=== PATIENT | female | born 1995 | race Caucasian/White ===

== ENCOUNTER 2017-08-25 15:43 | Emergency (ER) | payer MEDICAID ==
[2017-08-25] MEDS ORDERED: diphenhydrAMINE 50 MG/ML SDV IVPUSH ONE (16:29)
[2017-08-25] MEDS ORDERED: Ketorolac 30 MG/ML SDV IVPUSH ONE (16:29)
[2017-08-25] MEDS ORDERED: Sodium Chloride 0.9% 1,000 ML IV SCH (16:30)
[2017-08-25] MEDS ORDERED: Sodium Chloride 0.9% 10 ML Syringe FLUSH PRN (16:39)
[2017-08-25 17:41] VITALS: BP 123/79
--- NOTE | 2017-08-26 16:46 | ER ---
DATE SEEN: 08/25/2017 TIME SEEN: 1805 hours. CHIEF COMPLAINT: Headache. HISTORY OF PRESENT ILLNESS: The patient's headache came on an hour after she was told by her boyfriend about a breakup, at approximately 1023 hours this morning. She cried and since then she has had generalized headache. She describes it as a pressure from her eyes that radiates to both her ears. She denies paresis, weakness, numbness, hyperesthesia, dysesthesia, compromise in her vision, nausea, vomiting, diarrhea, fever, neck stiffness, scotoma, aura, or previous history of migraine headaches. She is not suicidal and does not feel helpless or hopeless or have difficulty with concentration. She is anxious. No history of psychomotor retardation or suicidal ideation or activity. PAST MEDICAL HISTORY: The patient has a past medical history of depression and takes Effexor, [id number] medication. ALLERGIES: Dilaudid. MEDICATIONS: She is using a form of contraception. Not . REVIEW OF SYSTEMS: Otherwise, negative except for noted above. PHYSICAL EXAMINATION: VITAL SIGNS: Blood pressure 129/89, heart rate 92, respirations 14, oxygen saturation 100%, and temperature 36.2 degrees centigrade. CONSTITUTIONAL: Alert, slightly overweight, tearful, sad woman who is in mild distress. Headache is 6 to 8. HEENT: PERRLA intact. Pharynx without abnormality. TMs negative. NECK: Supple. No thyromegaly, masses in neck, or cervical adenopathy. LUNGS: Clear without rales, rhonchi, or wheezes. HEART: S1, S2. No murmur. No irregular rate and rhythm. ABDOMEN: Soft. No guarding. No abdominal discomfort. No CVA percussion tenderness. EXTREMITIES: Without abnormality. NEURO: Exam is negative. Deep tendon reflexes, negative. Cranial nerves 2 through 12 normal and intact. No pronator drift. No dysmetria. No paresis or weakness. Romberg is negative. ASSESSMENT: Headache secondary to stress. No suggestion of migraine. EMERGENCY ROOM COURSE: The patient was treated with IV fluids, 1000 mL normal saline, Reglan 10 IV, Benadryl 50 IV, and Toradol 30 IV. Headache went down to 1/10 after she had received approximately 800 mL of normal saline. The patient was dismissed. PLAN: She will use Tylenol or ibuprofen as needed. Follow up with her doctor as needed, otherwise, in a week. DIAGNOSIS: Tension headache. /[id number] REGI/CHRIS
== END 2017-08-25 17:57 | disposition home or self-care (01) ==
LOC: FB.ED 15:43
DX: F43.9 Reaction to severe stress, unspecified (principal); G44.209 Tension-type headache, unspecified, not intractable; Z88.8 Allergy status to other drugs, medicaments and biological substances; F41.9 Anxiety disorder, unspecified
CPT/HCPCS: 96361; 96374; 96375; 99283; J1200; J1885; J7040; J7050; J7030

== ENCOUNTER 2018-01-26 18:15 | Emergency (ER) | payer MEDICAID ==
[2018-01-26] MEDS ORDERED: EPINEPHrine 1 MG/ML SDV SUBCUT ONE (19:51)
[2018-01-26] MEDS ORDERED: Sodium Chloride 0.9% 1,000 ML IV ONE (19:51)
[2018-01-26] MEDS ORDERED: Pantoprazole 40 MG Vial IVPUSH ONE (21:53)
[2018-01-26] MEDS ORDERED: diphenhydrAMINE 50 MG/ML SDV IVPUSH ONE (21:53)
[2018-01-26] MEDS ORDERED: Hydrocortisone Sodium Succinate 100 MG/2 ML SDV IVPUSH ONE (21:53)
[2018-01-26 23:45] VITALS: BP 153/94
--- NOTE | 2018-01-27 10:42 | ER ---
DATE SEEN: 01/26/2018 TIME SEEN: The patient was seen at 1860 hours. CHIEF COMPLAINT: Shortness of breath and abdominal pain. HISTORY OF PRESENT ILLNESS: About 10 to 15 minutes ago, the patient ate Cajun chicken at the [employer] at 1800 hours. She then started experiencing nausea, her face, neck, and arms were flushed. She became warm and hot and short of breath, and there was fullness in her throat. She had a difficulty swallowing sensation in her throat. She had pain with 9/10 abdominal discomfort. She has had a slight change in talking and slight difficulty breathing. She had mild left-sided parasternal discomfort. This was associated with a slight abdominal bloating,and a "stabbing,\\/ cutting sensation" with the 9/10 abdominal discomfort. She also describes a subxiphoid and substernal chest discomfort that radiates to the sides of her chest and then to the left parasternal area. She denies feeling dizzy. These flushing symptoms, tight throat and abdominal symptoms are similar to what she experienced 2 years ago when she had been give a shot Dilaudid. Except at that time the symptoms differed in that she blacked out from hypotension. Approximately several hours before she went to the restaurant, she had non bloody diarrhea x 2. No history of irritable bowel syndrome. She had a late meal of stuffing last night, and had a slight nausea last night, and otherwise was not sick this morning except for loose stools. 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 On arrival, heart rate is 120 to 126, blood pressure is 148/96, respirations are 20, and oxygen saturation on room air is 100%. No tachypnea. Temperature 36.9 degrees centigrade. The patient was not in extremis. REVIEW OF SYSTEMS: Negative except as noted above. ALLERGIES: Hydromorphone-Dilaudid. CURRENT MEDICATIONS: Venlafaxine for depression 150 mg daily/anxiety. PHYSICAL EXAMINATION: GENERAL: The patient is not flushed presently. She is able to breathe, is able to communicate, and does not have any wheezing, shortness of breath, or diaphoresis. HEENT: PERRLA intact. Pharynx without abnormality. Mucosa is semi-moist. Hearing is good, intact. NECK: No stridor. No thyromegaly or masses in the neck. No cervical adenopathy. No tracheal tug or tracheal deviation. LUNGS: Clear without rales, rhonchi, or wheezes. No intercostal retraction. No suprasternal retraction. No subxiphoid retraction. HEART: S1 and S2. Sinus tachycardia. ABDOMEN: Soft. No guarding. No abdominal discomfort. EXTREMITIES: Without edema. Normal pulses in upper and lower extremities. Deep tendon reflexes are normal in upper and lower extremities. Cranial nerves 2 through 12 are intact. Oriented x3. Gait appropriate. Strength appropriate and oriented. No pronator drift. WORKING DIAGNOSES: Allergic reaction to Cajun chicken. No anaphylaxis. No angioedema. No history of hereditary angioedema. The patient was initially treated with fluid hydration and a shot of epinephrine 0.3 mg of 1:1000 epinephrine. She felt slightly better with this. Then treated with Benadryl 50 IV, Solu-Cortef 100 mg IV, and Protonix 40 mg IV. The patient still had tachycardia after she finished her medications. The etiology of her tachycardia is indeterminate. It is thought perhaps that she might have dehydration. When she had the IV, she felt "pain in her arm," and she did not want any further IV fluid. Initially I desisted from providing more IV fluids, but later after encouraging her to put up with the"discomfort" of the IV fluid, was flushed with 1000 mL of normal fluid. There were other peculiar idiosyncratic symptoms that nurses has charted in her notes.I felt the idiosyncratic reactions were from an overly emotional patient. LABORATORY FINDINGS: CBC is normal. D-dimer is normal. Troponin negative. Complete metabolic panel negative. Urine test is negative. No suggestion that the patient had ingested street drugs. ASSESSMENT AND PLAN: 1. Shortness of breath and nausea secondary to Cajun food ingestion, probably allergic reaction. 2. Diarrhea antecedent by several hours to the reaction to the Cajun chicken ingestion. Perhaps the homemade stuffing had eaten last night that might have caused diarrhea. 3. Obesity. 4. Depression. 5. Non cardiac chest pain, probably secondary to the allergic reaction mediated tightness in lungs. 6. Status post cholecystectomy. 7. EKG was performed with flat T-waves, aVF, and III. Slight enlargement in P waves. No evidence for cardiovascular compromise. PLAN: 1) BENADRYL 25-50 MG EVERY 6 HOUR FOR THE NEXT 24 HOURS. 2) Follow up with MD or ED immediately if severe shortness of breathe otherwise see MD in 5-7 days. /[id number] REGI/CHRIS MTDD
== END 2018-01-26 23:18 | disposition home or self-care (01) ==
LOC: FB.ED 18:15
DX: K52.29 Other allergic and dietetic gastroenteritis and colitis (principal); R06.02 Shortness of breath; R11.0 Nausea; E66.9 Obesity, unspecified; F32.9 Major depressive disorder, single episode, unspecified; R07.89 Other chest pain; Z90.49 Acquired absence of other specified parts of digestive tract
CPT/HCPCS: 36415; 80053; 81025; 84484; 85025; 85379; 93005; 96372; 96374; 96375; 99283; C9113; J0171; J1200; J1720; J7030

== ENCOUNTER 2023-12-09 23:20 | Emergency (ER) | payer MEDICAID ==
[2023-12-09] MEDS ORDERED: Norepinephrine 4 MG in Dextrose 5% in Water 246 ML IV SCH (23:30)
[2023-12-10] MEDS: LORazepam 2 MG/ML SDV IM STA (01:16)
[2023-12-10 02:06] VITALS: BP 122/74; PULSE 94
== END 2023-12-10 01:55 | disposition home or self-care (01) ==
LOC: FB.ED 23:20
DX: F41.0 Panic disorder [episodic paroxysmal anxiety] (principal); Z88.5 Allergy status to narcotic agent
CPT/HCPCS: 96372; 99283; 99284; J2060

== ENCOUNTER 2024-03-23 22:08 | Emergency (ER) | payer MEDICAID ==
[2024-03-23] MEDS: LORazepam 2 MG/ML SDV IVPUSH ONE (22:23)
[2024-03-23] MEDS: Ketorolac 30 MG/ML SDV IM ONE (23:06)
[2024-03-23] MEDS: Ondansetron 4 MG Tab.DIS PO ONE (23:07)
[2024-03-24 00:12] VITALS: PULSE 62
[2024-03-24 00:35] VITALS: BP 132/76
== END 2024-03-24 00:12 | disposition home or self-care (01) ==
LOC: FB.ED 22:08
DX: R51.9 Headache, unspecified (principal); F41.0 Panic disorder [episodic paroxysmal anxiety]; Z88.8 Allergy status to other drugs, medicaments and biological substances; Z79.899 Other long term (current) drug therapy; Z90.49 Acquired absence of other specified parts of digestive tract
CPT/HCPCS: 96372; 99284; J1885; J2060; Q0162

== ENCOUNTER 2024-08-27 17:42 | Emergency (ER) | payer MEDICAID ==
[2024-08-27] MEDS ORDERED: Sodium Chloride 0.9% 10 ML Syringe FLUSH PRN (17:57)
[2024-08-27 18:24] LABS: BASOPHILS PERCENT AUTO 0.5 % (0.2-1.5); EOSINOPHILS PERCENT AUTO 0.6 % (0.6-8.1); HEMATOCRIT 37.7 % (34.2-48.2); HEMOGLOBIN 12.8 g/dL (11.4-15.5); LYMPHOCYTES ABSOLUTE AUTO 1.8 x10-3/uL (1.0-4.4); LYMPHOCYTES PERCENT AUTO 25.8 % (18.4-52.1); MEAN CORPUSCULAR HGB CONC 33.8 g/dL (31.9-34.8); MEAN CORPUSCULAR VOLUME 82.9 fL (76.7-100.5); MEAN PLATELET VOLUME 8.9 fL (7.1-12.4); MONOCYTES ABSOLUTE AUTO 0.6 x10-3/uL (0.3-1.0); MONOCYTES PERCENT AUTO 9.2 % (4.4-15.7); NEUTROPHILS ABSOLUTE AUTO 4.4 x10-3/uL (1.5-6.3); NEUTROPHILS PERCENT AUTO 63.9 % (30.8-76.2); PLATELET COUNT,PLT 224 x10(3)uL (151-488); RED BLOOD CELL COUNT 4.55 x10(6)uL (3.60-5.20); RED CELL DISTRIBUTION WIDTH 14.6 % (12.3-16.5); WHITE BLOOD CELL COUNT,WBC 6.8 x10-3/uL (3.0-10.3)
[2024-08-27 18:26] LABS: BLOOD UREA NITROGEN,BUN 16 mg/dL (7-18); CALCIUM 9.5 mg/dL (8.6-10.2); CARBON DIOXIDE,CO2 28 mmol/L (21-32); CHLORIDE,CL 104 mmol/L (100-110); CREATININE 0.8 mg/dL (0.55-1.02); ESTIMATED GFR 104 mL/min (>60); GLUCOSE RANDOM 84 mg/dL (80-116); POTASSIUM,K 3.8 mmol/L (3.5-5.3); SODIUM,NA 142 mmol/L (135-145)
[2024-08-27] MEDS: Ketorolac 30 MG/ML SDV IVPUSH ONE (18:27)
[2024-08-27] MEDS: Sodium Chloride 0.9% 1,000 ML IV SCH (18:27)
[2024-08-27] MEDS: Ondansetron 4 MG/2 ML SDV IVPUSH ONE (18:27)
[2024-08-27 18:33] LABS: A/G RATIO 1.1; ALANINE AMINOTRANSFERASE,ALT 28 U/L (12-36); ALBUMIN 3.7 g/dL (3.5-5.2); ALKALINE PHOSPHATASE 93 IU/L (56-112); ASPARTATE AMNIOTRANSFERASE,AST 16 IU/L (5-25); BILIRUBIN TOTAL 0.3 mg/dL (0.1-1.3); PROTEIN TOTAL,TP 7.1 g/dL (6.0-8.0)
[2024-08-27 19:23] LABS: BILIRUBIN,URINE NEGATIVE (NEGATIVE); GLUCOSE,URINE NORMAL (NORMAL); KETONES,URINE NEGATIVE (NEGATIVE); LEUKOCYTE ESTERASE,URINE NEGATIVE (NEGATIVE); NITRITE,URINE NEGATIVE (NEGATIVE); OCCULT BLOOD,URINE NEGATIVE (NEGATIVE); PROTEIN,URINE NEGATIVE (NEGATIVE); UROBILINOGEN,URINE NORMAL (NEGATIVE)
[2024-08-27 19:24] LABS: APPEARANCE,URINE CLEAR (CLEAR); COLOR,URINE YELLOW (YELLOW)
[2024-08-27 19:49] VITALS: BP 137/96; PULSE 95
== END 2024-08-27 21:40 | disposition home or self-care (01) ==
LOC: FB.ED 17:42
DX: K44.9 Diaphragmatic hernia without obstruction or gangrene (principal); K21.9 Gastro-esophageal reflux disease without esophagitis; N83.209 Unspecified ovarian cyst, unspecified side; Z90.49 Acquired absence of other specified parts of digestive tract; Z88.5 Allergy status to narcotic agent; Z88.8 Allergy status to other drugs, medicaments and biological substances; Z79.899 Other long term (current) drug therapy
CPT/HCPCS: 36415; 74176; 80053; 81003; 81025; 83690; 85025; 96361; 96374; 96375; 99284; J1885; J2405; J7030

== ENCOUNTER 2024-11-17 23:14 | Emergency (ER) | payer MEDICAID ==
[2024-11-18 00:30] LABS: BASOPHILS PERCENT AUTO 0.5 % (0.2-1.5); EOSINOPHILS PERCENT AUTO 0.3 % (0.6-8.1); HEMATOCRIT 37.7 % (34.2-48.2); HEMOGLOBIN 12.8 g/dL (11.4-15.5); LYMPHOCYTES ABSOLUTE AUTO 1.7 x10-3/uL (1.0-4.4); LYMPHOCYTES PERCENT AUTO 25.1 % (18.4-52.1); MEAN CORPUSCULAR HEMOGLOBIN 27.6 pg (23.9-33.9); MEAN CORPUSCULAR HGB CONC 33.9 g/dL (31.9-34.8); MEAN CORPUSCULAR VOLUME 81.3 fL (76.7-100.5); MEAN PLATELET VOLUME 9.3 fL (7.1-12.4); MONOCYTES ABSOLUTE AUTO 0.6 x10-3/uL (0.3-1.0); MONOCYTES PERCENT AUTO 8.9 % (4.4-15.7); NEUTROPHILS ABSOLUTE AUTO 4.5 x10-3/uL (1.5-6.3); NEUTROPHILS PERCENT AUTO 65.2 % (30.8-76.2); PLATELET COUNT,PLT 225 x10(3)uL (151-488); RED BLOOD CELL COUNT 4.64 x10(6)uL (3.60-5.20); RED CELL DISTRIBUTION WIDTH 14.4 % (12.3-16.5); WHITE BLOOD CELL COUNT,WBC 6.9 x10-3/uL (3.0-10.3)
[2024-11-18 00:34] LABS: BLOOD UREA NITROGEN,BUN 15 mg/dL (7-18); BUN/CREATININE RATIO 16.7 (9-20); CALCIUM 8.9 mg/dL (8.6-10.2); CARBON DIOXIDE,CO2 27 mmol/L (21-32); CHLORIDE,CL 105 mmol/L (100-110); CREATININE 0.9 mg/dL (0.55-1.02); ESTIMATED GFR 90 mL/min (>60); GLUCOSE RANDOM 96 mg/dL (80-116); POTASSIUM,K 3.9 mmol/L (3.5-5.3); SODIUM,NA 141 mmol/L (135-145)
[2024-11-18 00:36] LABS: BILIRUBIN,URINE NEGATIVE (NEGATIVE); GLUCOSE,URINE NORMAL (NORMAL); KETONES,URINE NEGATIVE (NEGATIVE); LEUKOCYTE ESTERASE,URINE NEGATIVE (NEGATIVE); NITRITE,URINE NEGATIVE (NEGATIVE); OCCULT BLOOD,URINE NEGATIVE (NEGATIVE); PROTEIN,URINE NEGATIVE (NEGATIVE); UROBILINOGEN,URINE NORMAL (NEGATIVE)
[2024-11-18 00:40] LABS: APPEARANCE,URINE CLEAR (CLEAR); BACTERIA,URINE FEW (NS); COLOR,URINE YELLOW (YELLOW); RBC,URINE 0-5 (0-5); SQUAMOUS EPITHELIAL CELLS,UR FEW (NS,R,O); WBC,URINE 0-5 (0-5)
[2024-11-18 01:06] VITALS: BP 124/89; PULSE 80
== END 2024-11-18 01:16 | disposition home or self-care (01) ==
LOC: FB.ED 23:14
DX: R10.31 Right lower quadrant pain (principal); Z88.8 Allergy status to other drugs, medicaments and biological substances; Z79.899 Other long term (current) drug therapy; Z90.49 Acquired absence of other specified parts of digestive tract
CPT/HCPCS: 36415; 80048; 81001; 81025; 85025; 86140; 99284

== ENCOUNTER 2025-01-22 07:50 | Emergency (ER) | payer MEDICAID ==
[2025-01-22] MEDS ORDERED: Naloxone 0.4 MG/ML SDV IVPUSH PRN (08:19)
[2025-01-22 08:30] LABS: BASOPHILS PERCENT AUTO 0.3 % (0.2-1.5); EOSINOPHILS PERCENT AUTO 0.6 % (0.6-8.1); HEMATOCRIT 41.2 % (34.2-48.2); HEMOGLOBIN 13.5 g/dL (11.4-15.5); LYMPHOCYTES ABSOLUTE AUTO 1.6 x10-3/uL (1.0-4.4); LYMPHOCYTES PERCENT AUTO 21.2 % (18.4-52.1); MEAN CORPUSCULAR HEMOGLOBIN 26.5 pg (23.9-33.9); MEAN CORPUSCULAR HGB CONC 32.9 g/dL (31.9-34.8); MEAN CORPUSCULAR VOLUME 80.6 fL (76.7-100.5); MEAN PLATELET VOLUME 9.3 fL (7.1-12.4); MONOCYTES ABSOLUTE AUTO 0.7 x10-3/uL (0.3-1.0); MONOCYTES PERCENT AUTO 9.6 % (4.4-15.7); NEUTROPHILS ABSOLUTE AUTO 5.1 x10-3/uL (1.5-6.3); NEUTROPHILS PERCENT AUTO 68.3 % (30.8-76.2); PLATELET COUNT,PLT 254 x10(3)uL (151-488); RED BLOOD CELL COUNT 5.11 x10(6)uL (3.60-5.20); RED CELL DISTRIBUTION WIDTH 14.9 % (12.3-16.5); WHITE BLOOD CELL COUNT,WBC 7.4 x10-3/uL (3.0-10.3)
[2025-01-22 08:34] LABS: BLOOD UREA NITROGEN,BUN 15 mg/dL (7-18); BUN/CREATININE RATIO 18.8 (9-20); CARBON DIOXIDE,CO2 27 mmol/L (21-32); CHLORIDE,CL 102 mmol/L (100-110); CREATININE 0.8 mg/dL (0.55-1.02); ESTIMATED GFR 103 mL/min (>60); GLUCOSE RANDOM 118 mg/dL (80-116); POTASSIUM,K 3.9 mmol/L (3.5-5.3); SODIUM,NA 137 mmol/L (135-145)
[2025-01-22 08:34] LABS: BILIRUBIN,URINE NEGATIVE (NEGATIVE); GLUCOSE,URINE NORMAL (NORMAL); KETONES,URINE NEGATIVE (NEGATIVE); LEUKOCYTE ESTERASE,URINE NEGATIVE (NEGATIVE); NITRITE,URINE NEGATIVE (NEGATIVE); OCCULT BLOOD,URINE NEGATIVE (NEGATIVE); PROTEIN,URINE NEGATIVE (NEGATIVE); UROBILINOGEN,URINE NORMAL (NEGATIVE)
[2025-01-22 08:36] LABS: APPEARANCE,URINE CLEAR (CLEAR); COLOR,URINE YELLOW (YELLOW)
[2025-01-22 08:42] LABS: C-REACTIVE PROTEIN 0.64 mg/dL (<0.50); TROPONIN I 4.5 pg/mL (4.0-60.3)
[2025-01-22 08:45] LABS: ALANINE AMINOTRANSFERASE,ALT 31 U/L (12-36); ALBUMIN 3.7 g/dL (3.5-5.2); ALKALINE PHOSPHATASE 97 IU/L (56-112); ASPARTATE AMNIOTRANSFERASE,AST 19 IU/L (5-25); BILIRUBIN TOTAL 0.5 mg/dL (0.1-1.3); MAGNESIUM 1.8 mg/dL (1.8-2.5); PROTEIN TOTAL,TP 7.4 g/dL (6.0-8.0)
[2025-01-22] MEDS: Sodium Chloride 0.9% 1,000 ML IV ONE (08:48)
[2025-01-22] MEDS: Metoclopramide 10 MG/2 ML SDV IVPUSH ONE (08:48)
[2025-01-22] MEDS: fentaNYL 100 MCG/2 ML SDV IVPUSH ONE (08:51)
[2025-01-22] MEDS: Ondansetron 4 MG/2 ML SDV IVPUSH ONE (08:51)
[2025-01-22] MEDS: Sodium Chloride 0.9% 10 ML Syringe FLUSH PRN (08:51)
[2025-01-22 10:15] VITALS: BP 137/91; PULSE 84
== END 2025-01-22 10:01 | disposition home or self-care (01) ==
LOC: FB.ED 07:50
DX: E86.0 Dehydration (principal); R07.89 Other chest pain; R11.2 Nausea with vomiting, unspecified; R10.13 Epigastric pain; Z88.5 Allergy status to narcotic agent; Z79.899 Other long term (current) drug therapy; Z90.49 Acquired absence of other specified parts of digestive tract
CPT/HCPCS: 36415; 80053; 81003; 81025; 83690; 83735; 84484; 85025; 86140; 87230; 93005; 96361; 96374; 99284-25; J2765; J7030

== ENCOUNTER 2025-07-31 18:06 | Emergency (ER) | payer MEDICAID ==
[2025-07-31] MEDS ORDERED: Sodium Chloride 0.9% 10 ML Syringe FLUSH PRN (18:36)
[2025-07-31] MEDS: Ondansetron 4 MG/2 ML SDV IVPUSH ONE (18:45)
[2025-07-31] MEDS: Ketorolac 30 MG/ML SDV IVPUSH ONE (18:49)
[2025-07-31 19:05] LABS: BLOOD UREA NITROGEN,BUN 9 mg/dL (7-18); CARBON DIOXIDE,CO2 24 mmol/L (21-32); CHLORIDE,CL 101 mmol/L (100-110); CREATININE 0.8 mg/dL (0.55-1.02); EST CRCL DRUG DOSING (CG) 90.41 mL/min; ESTIMATED GFR 103 mL/min (>60); GLUCOSE RANDOM 101 mg/dL (80-116); POTASSIUM,K 3.4 mmol/L (3.5-5.3); SODIUM,NA 136 mmol/L (135-145)
[2025-07-31 19:11] LABS: A/G RATIO 1.0; ALANINE AMINOTRANSFERASE,ALT 38 U/L (12-36); ASPARTATE AMNIOTRANSFERASE,AST 23 IU/L (5-25); BILIRUBIN TOTAL 0.8 mg/dL (0.1-1.3); PROTEIN TOTAL,TP 7.9 g/dL (6.0-8.0)
[2025-07-31 19:15] LABS: LACTIC ACID 1.0 mmol/L (0.4-2.0)
[2025-07-31 19:21] LABS: BASOPHILS ABSOLUTE AUTO 0.0 x10-3/uL (0.0-0.1); BASOPHILS PERCENT AUTO 0.1 % (0.2-1.5); EOSINOPHILS ABSOLUTE AUTO 0.0 x10-3/uL (0.0-0.8); EOSINOPHILS PERCENT AUTO 0.1 % (0.6-8.1); LYMPHOCYTES ABSOLUTE AUTO 0.5 x10-3/uL (1.0-4.4); LYMPHOCYTES PERCENT AUTO 5.5 % (18.4-52.1); MEAN PLATELET VOLUME 9.5 fL (7.1-12.4); MONOCYTES ABSOLUTE AUTO 0.9 x10-3/uL (0.3-1.0); MONOCYTES PERCENT AUTO 11.1 % (4.4-15.7); NEUTROPHILS ABSOLUTE AUTO 6.9 x10-3/uL (1.5-6.3); NEUTROPHILS PERCENT AUTO 83.2 % (30.8-76.2); PLATELET COUNT,PLT 219 x10(3)uL (151-488); RED BLOOD CELL COUNT 5.13 x10(6)uL (3.60-5.20); RED CELL DISTRIBUTION WIDTH 15.1 % (12.3-16.5); WHITE BLOOD CELL COUNT,WBC 8.3 x10-3/uL (3.0-10.3)
[2025-07-31 20:59] VITALS: BP 130/70; PULSE 100
== END 2025-07-31 20:40 | disposition home or self-care (01) ==
LOC: FB.ED 18:06
DX: J10.1 Influenza due to other identified influenza virus with other respiratory manifestations (principal); E86.0 Dehydration; E66.9 Obesity, unspecified; Z88.5 Allergy status to narcotic agent; Z79.899 Other long term (current) drug therapy; Z90.49 Acquired absence of other specified parts of digestive tract; Z68.35 Body mass index [BMI] 35.0-35.9, adult
CPT/HCPCS: 36415; 80053; 83605; 85025; 86140; 87428; 87651; 96361; 96374; 96375; 99283; 99284; A9270; J1885; J2405; J7030